=== PATIENT | female | born 1980 | race Caucasian/White ===

== ENCOUNTER 2016-11-06 01:53 | Emergency (ER) | payer BC ==
[2016-11-06 03:00] VITALS: BP 118/80
== END 2016-11-06 03:00 | disposition home or self-care (01) ==
LOC: ED 01:53
DX: S05.01XA Injury of conjunctiva and corneal abrasion without foreign body, right eye, initial encounter (principal); X58.XXXA Exposure to other specified factors, initial encounter; Y93.89 Activity, other specified; Y92.89 Other specified places as the place of occurrence of the external cause; Y99.8 Other external cause status
CPT/HCPCS: J7050; V2632